=== PATIENT | male | born 1975 | race Caucasian/White ===

== ENCOUNTER 2018-03-01 21:38 | Emergency (ER) | payer BC, OTHER ==
[~2018-03-01] VITALS: Ht 175.3 cm; Wt 108.9 kg
[2018-03-01 21:40] VITALS: BP_SYST 152
[2018-03-01] MEDS ORDERED: DIPH-TET-PERTUS Vaccine 0.5 ML VIAL (ADACEL) I.M. ONE (22:00)
[2018-03-01 22:04] VITALS: BP_SYST 140
== END 2018-03-01 22:04 | disposition home or self-care (01) ==
LOC: SED 21:38
DX: S70.361A Insect bite (nonvenomous), right thigh, initial encounter (principal); L03.115 Cellulitis of right lower limb; I10 Essential (primary) hypertension; W57.XXXA Bitten or stung by nonvenomous insect and other nonvenomous arthropods, initial encounter; Y93.89 Activity, other specified; Y92.89 Other specified places as the place of occurrence of the external cause; Y99.8 Other external cause status
CPT/HCPCS: 90715; 99283

== ENCOUNTER 2020-02-12 16:24 | Emergency (ER) | payer BC ==
[~2020-02-12] VITALS: Ht 175.3 cm; Wt 97.5 kg
[2020-02-12 16:30] VITALS: BP_SYST 154
--- NOTE | 2020-02-12 16:33 | NUR ---
AMBULATED TO BED 4. PATIENT EDUCATED ON PAIN CONTROL, AND REFUSED PAIN MEDS
--- NOTE | 2020-02-12 17:00 | NUR ---
CALM, ALERT, RESP UNLABORED, SKIN WARM AND DRY. COMMUNICATES CLEARLY IN FULL COMPLETE SENTENCES. HERE FOR EAR PAIN
--- NOTE | 2020-02-12 17:30 | NUR ---
DR OCHOA IN TO ASSESS
[2020-02-12 17:40] VITALS: BP_SYST 136
--- NOTE | 2020-02-12 17:40 | NUR ---
Patient given written and verbal discharge instructions and verbalizes understanding. ER MD discussed with patient the results and treatment provided. Patient in stable condition. ID arm band removed. Rx given. Patient educated on pain management and to follow up with PMD. Pain Scale 2/10. Opportunity for questions provided and answered. Medication side effect fact sheet provided.
== END 2020-02-12 17:40 | disposition home or self-care (01) ==
LOC: SED 16:24
DX: H65.91 Unspecified nonsuppurative otitis media, right ear (principal); I10 Essential (primary) hypertension
CPT/HCPCS: 99283

== ENCOUNTER 2020-10-11 03:26 | Emergency (ER) | payer BC ==
[~2020-10-11] VITALS: Ht 175.3 cm; Wt 95.3 kg
[2020-10-11 03:30] VITALS: BP_SYST 132
[2020-10-11] MEDS ORDERED: ONDANSETRON HCL 4 MG/2 ML VIAL IVP ONE (03:45)
[2020-10-11] MEDS ORDERED: NACL 0.9% 1,000 ML IV ONE (03:45)
[2020-10-11] MEDS ORDERED: MORPHINE 4 MG/ML INJ. SYRINGE ONE (04:11)
[2020-10-11 04:14] LABS: BILIRUBIN,URINE NEGATIVE (NEGATIVE); BLOOD, URINE NEGATIVE (NEGATIVE); CLARITY/URINE CLEAR (CLEAR); COLOR,URINE YELLOW (YELLOW); GLUCOSE,URINE NEGATIVE (NEGATIVE); KETONES,URINE NEGATIVE (NEGATIVE); LEUKOCYTE ESTERASE ,URINE NEGATIVE (NEGATIVE); NITRITE, URINE NEGATIVE (NEGATIVE); PROTEIN URINE TRACE (NEGATIVE)
[2020-10-11] MEDS ORDERED: KETOROLAC TROMETHAMINE 30 MG VIAL IVP ONE (04:15)
[2020-10-11] MEDS ORDERED: MORPHINE 4 MG/ML INJ. SYRINGE IVP ONE (04:15)
[2020-10-11] MEDS ORDERED: FAMOTIDINE PF 20 MG/2 ML VIAL IVP ONE (04:15)
[2020-10-11] MEDS ORDERED: KETOROLAC TROMETHAMINE 30 MG VIAL ONE (04:18)
[2020-10-11 04:19] LABS: BASOPHILS % (AUTO) 0.4 % (0.0-2.0); EOSINOPHILS % (AUTO) 0.1 % (0.0-4.0); HEMATOCRIT 43.5 % (36-54); HEMOGLOBIN 15.3 g/dL (14.0-18.0); LYMPHOCYTES # (AUTO) 1.4 K/uL (1.0-5.5); LYMPHOCYTES % (AUTO) 18.8 % (20.5-51.5); MEAN CORPUSCULAR HEMOGLOBIN 30 pg (27-31); MEAN CORPUSCULAR HGB CONC 35 % (32-36); MEAN CORPUSCULAR VOLUME 85 fL (79.0-98.0); MONOCYTES # (AUTO) 0.5 K/uL (0.0-1.0); MONOCYTES % (AUTO) 6.8 % (1.7-9.3); NEUTROPHILS # (AUTO) 5.5 K/uL (1.8-7.7); NEUTROPHILS % (AUTO) 73.9 % (40.0-70.0); PLATELET COUNT (AUTO) 252 K/uL (130-430); RED BLOOD CELL COUNT(AUTO) 5.14 MIL/uL (4.2-6.2); RED CELL DISTRIBUTION WIDTH 12.5 % (9.0-15.0); WHITE BLOOD COUNT (AUTO) 7.5 K/uL (4.8-10.8)
[2020-10-11 04:35] LABS: ALBUMIN 3.2 g/dL (3.4-4.8); CALCIUM 8.9 mg/dL (8.4-11.0); CREATININE 0.97 mg/dL (0.55-1.30); TOTAL BILIRUBIN 0.6 mg/dL (0.0-1.0)
[2020-10-11 05:59] VITALS: BP_SYST 121
== END 2020-10-11 06:00 | disposition home or self-care (01) ==
LOC: SED 03:26
DX: R10.13 Epigastric pain (principal); R11.10 Vomiting, unspecified; I10 Essential (primary) hypertension
CPT/HCPCS: 36415; 80053; 81003; 83690; 85025; 93005; 96361; 96374; 96375; 99284; J1885; J2405; J3490; J7030; J2270